=== PATIENT | female | born 1945 | race Caucasian/White ===

== ENCOUNTER 2016-06-20 11:24 | Inpatient (IN) | payer OTHER, BC ==
[~2016-06-20] VITALS: Ht 171.4 cm; Wt 79.7 kg
[~2016-06-20 11:24] MED LIST: ATORVASTATIN CA40 MG PO; ATORVASTATIN CA80 MG PO; CARVEDILOL12.5 MG PO; CARVEDILOL3.125 MG PO; CARVEDILOL6.25 MG PO; CIPRO500 MG PO; CIPROFLOXACIN500 M1 PO; DAILY VITE1 EAC1 PO; DAYPRO600 MG PO; DOCUSATE SODIU100 MG PO; FLOMAX0.4 MG PO; FLORASTOR250 MG PO; FUROSEMIDE20 MG PO; FUROSEMIDE40 MG PO; GLUCOPHAGE500 MG PO; HYDROCODON-ACE1 EAC7 PO; K-DUR20 MEQ PO; KLOR-CON M2020 MEQ PO; LASIX20 MG PO; LASIX40 MG PO; LEVAQUIN500 MG PO; LISINOPRIL10 MG PO; LISINOPRIL20 MG PO; LO-DOSE ASPIRIN81 M1 PO; Lomotil,Lonox PO; MAGNESIUM400 M1 PO; OXAPROZIN600 MG PO; PAXIL10 MG PO; PAXIL40 MG PO; PERCOCET 5/31 TABLET PO; PREVACID30 MG PO; PROMETHAZINE HC25 M1 PO; ROXICODONE5 MG PO; SODIUM CHLORIDE1 G1 PO; SYMBICORT60 INHALA1 IH; ZOFRAN4 MG PO
[2016-06-20 16:07] LABS: HEMATOCRIT 35.8 % (36.0-46.0); MCH 25.4 PG (29.0-34.0); MCHC 32.7 G/DL (30.0-36.0); MCV 77.8 FL (83-99); MEAN PLAT.VOLUME 10.3 uM^3 (9.5-12.4); PLATELET COUNT 236 K/uL (156-360); RBC DIS.WIDTH-CV 17.1 % (11.8-14.6); RBC DIS.WIDTH-SD 46.9 % (39-53)
[2016-06-20 16:16] LABS: CHLORIDE 98 mEq/L (99-109); POTASSIUM 3.9 mEq/L (3.7-5.4); SODIUM 137 mEq/L (136-147)
[2016-06-20 16:19] LABS: GLUCOSE 107 mg/dL (70-99)
[2016-06-20 16:20] LABS: ANION GAP 13 MEQ/L (2-14)
[2016-06-20 16:21] LABS: TOTAL BILIRUBIN 0.4 mg/dL (0.0-1.0)
[2016-06-20 16:22] LABS: ALKALINE PHOSPHATASE 98 IU/L (3-129); GFR ESTIMATE (CALCULATED) 40 mL/min/
[2016-06-20 16:23] LABS: UREA NITROGEN (BUN) 23 mg/dL (9-23)
[2016-06-20] MEDS ORDERED: PROBIOTIC250 MG PO (17:46)
[2016-06-20] MEDS ORDERED: ASCORBIC ACID500 M3 PO (17:47)
[2016-06-20] MEDS ORDERED: TYLENOL EXTRA500 MG PO (17:47)
[2016-06-20] MEDS ORDERED: ADVIL200 MG PO (17:48)
[2016-06-20 17:56] LABS: ADD MIUA? YES; BILIRUBIN NEGATIVE; BLOOD TRACE; COLOR YELLOW ((YELLOW)); GLUCOSE (STRIP) NEGATIVE; KETONES NEGATIVE; LEUKOCYTES LARGE; NITRITE POSITIVE; PH, URINE 6.5 (5-8); PROTEIN (STRIP) TRACE; UROBILINOGEN 0.2 MG/DL (0.2-1.0)
[2016-06-20 18:25] LABS: RED BLOOD CELLS RARE /HPF (0-5)
[2016-06-20 18:26] LABS: BACTERIA 2+; CASTS NONE SEEN /LPF; CRYSTALS NONE SEEN; EPITHELIAL CELLS RARE; MUCUS TRACE; UCUL ADDED? YES; WHITE BLOOD CELLS TNTC /HPF (0-5)
[2016-06-20 20:30] VITALS: BP 128/56
[2016-06-20 20:35] VITALS: BP 129/69
[2016-06-21] VITALS (7 sets, daily range): BP systolic 97–133; BP diastolic 52–63
[2016-06-21 07:37] LABS: INTER. NORMALIZED RATIO 1.1; PROTHROMBIN TIME 11.5 (9.2-11.2); PTT 27.9 (25-32)
[2016-06-22 04:49] VITALS: BP 115/72
[2016-06-22 07:40] VITALS: BP 116/74
[2016-06-22 08:52] LABS: HEMATOCRIT 29.6 % (36.0-46.0); MCH 25.1 PG (29.0-34.0); MCHC 30.7 G/DL (30.0-36.0); MCV 81.5 FL (83-99); RBC DIS.WIDTH-CV 17.6 % (11.8-14.6); RBC DIS.WIDTH-SD 52.6 % (39-53)
[2016-06-22 09:04] LABS: ANION GAP 7 MEQ/L (2-14); CHLORIDE 99 MEQ/L (99-109); GFR ESTIMATE (CALCULATED) 34 mL/min/; GLUCOSE 145 mg/dL (70-99); POTASSIUM 4.3 MEQ/L (3.7-5.4); SAMPLE HEMOLYSIS CHECK 0; SAMPLE ICTERIC CHECK 0; SAMPLE LIPEMIA CHECK 0; SODIUM 135 MEQ/L (136-147); UREA NITROGEN (BUN) 25 mg/dL (9-23)
[2016-06-22 09:16] LABS: RED BLOOD COUNT 3.63 M/uL (3.80-5.20); WHITE BLOOD COUNT 6.5 K/uL (4.1-10.2)
[2016-06-22 09:23] LABS: PLATELET COUNT UNABLE TO REPORT K/uL (156-360)
[2016-06-22 11:47] VITALS: BP 108/56
[2016-06-22 16:10] VITALS: BP 129/58
[2016-06-22 19:49] VITALS: BP 140/63
[2016-06-22 23:47] VITALS: BP 126/59
[2016-06-23 04:20] VITALS: BP 131/61
[2016-06-23 06:53] LABS: HEMATOCRIT 28.6 % (36.0-46.0); MCH 25.2 PG (29.0-34.0); MCHC 31.1 G/DL (30.0-36.0); RBC DIS.WIDTH-CV 17.6 % (11.8-14.6); RED BLOOD COUNT 3.53 M/uL (3.80-5.20); WHITE BLOOD COUNT 5.4 K/uL (4.1-10.2)
[2016-06-23 07:16] LABS: ANION GAP 13 MEQ/L (2-14); CHLORIDE 98 MEQ/L (99-109); GFR ESTIMATE (CALCULATED) 37 mL/min/; GLUCOSE 115 mg/dL (70-99); POTASSIUM 4.4 MEQ/L (3.7-5.4); SAMPLE HEMOLYSIS CHECK 0; SAMPLE ICTERIC CHECK 0; SAMPLE LIPEMIA CHECK 0; SODIUM 138 MEQ/L (136-147); UREA NITROGEN (BUN) 24 mg/dL (9-23)
[2016-06-23 07:57] VITALS: BP 143/67
[2016-06-23] MEDS ORDERED: DUONEB 2.5-0.5 M3 ML AEROSOL (09:51)
[2016-06-23] MEDS ORDERED: LOVENOX40 MG/0.4 SC (09:51)
[2016-06-23] MEDS ORDERED: PROVENTIL,2.5 MG/0.5 AEROSOL (09:51)
[2016-06-23] MEDS ORDERED: Dilaudid IV (09:52)
[2016-06-23] MEDS ORDERED: HYDROCODON-ACE1 EAC9 PO (09:52)
[2016-06-23] MEDS ORDERED: INVANZ1 GM IV (09:53)
[2016-06-23 10:42] LABS: MEAN PLAT.VOLUME 10.6 uM^3 (9.5-12.4)
[2016-06-23 10:46] LABS: PLATELET COUNT 153 K/uL (156-360)
[2016-06-23] MEDS ORDERED: COLACE100 MG PO (11:49)
[2016-06-23] MEDS ORDERED: PROTONIX40 MG PO (11:59)
[2016-06-23] MEDS ORDERED: ADVAIR HFA120 INHALA IH (12:02)
[2016-06-23] MEDS ORDERED: ZOFRAN4 MG/2 ML IM (12:03)
== END 2016-06-23 10:17 | DRG 481 ==
LOC: EME 11:24 → EDOF 17:25 → 3EAST 17:25
PROVIDERS: Nurse Practitioner Family; Pediatrics; Physician Assistant
PROC: 0QS704Z Reposition Left Upper Femur with Internal Fixation Device, Open Approach (ICD-10-PCS; principal; 2016-06-21)
DX: S72.042A Displaced fracture of base of neck of left femur, initial encounter for closed fracture (principal); F33.9 Major depressive disorder, recurrent, unspecified; N39.0 Urinary tract infection, site not specified; J44.9 Chronic obstructive pulmonary disease, unspecified; I10 Essential (primary) hypertension; E11.9 Type 2 diabetes mellitus without complications; F17.200 Nicotine dependence, unspecified, uncomplicated; I25.5 Ischemic cardiomyopathy; W01.0XXA Fall on same level from slipping, tripping and stumbling without subsequent striking against object, initial encounter; Y92.003 Bedroom of unspecified non-institutional (private) residence as the place of occurrence of the external cause; I25.10 Atherosclerotic heart disease of native coronary artery without angina pectoris; E78.5 Hyperlipidemia, unspecified; M10.9 Gout, unspecified; E55.9 Vitamin D deficiency, unspecified; Z95.1 Presence of aortocoronary bypass graft; Z87.440 Personal history of urinary (tract) infections
CPT/HCPCS: 71275; 73502; 76000; 80053; 80069; 81003; 82948; 85027; 85610; 85730; 86850; 86900; 86901; 87077; 87086; 87186; 93005; 94640; 94640 76; 94799; 99202; 99281; 99284; C1713; J0690; J0696; J1170; J1335; J1650; J2250; J2370; J2405; J3010; J7030; J7050

== ENCOUNTER 2016-06-23 10:16 | Inpatient (IN) | payer OTHER, BC ==
[~2016-06-23] VITALS: Ht 170.2 cm; Wt 77.4 kg
[~2016-06-23 10:16] MED LIST changes: +ADVIL200 MG PO; +ASCORBIC ACID500 M3 PO; +DUONEB 2.5-0.5 M3 ML AEROSOL; +Dilaudid IV; +HYDROCODON-ACE1 EAC9 PO; +INVANZ1 GM IV; +LOVENOX40 MG/0.4 SC; +PROBIOTIC250 MG PO; +PROVENTIL,2.5 MG/0.5 AEROSOL; +TYLENOL EXTRA500 MG PO
[2016-06-23 10:39] VITALS: BP 116/58
[2016-06-23 10:50] VITALS: BP 116/58
[2016-06-23] MEDS ORDERED: COLACE100 MG PO (11:49)
[2016-06-23] MEDS ORDERED: PROTONIX40 MG PO (11:59)
[2016-06-23] MEDS ORDERED: ADVAIR HFA120 INHALA IH (12:02)
[2016-06-23] MEDS ORDERED: ZOFRAN4 MG/2 ML IM (12:03)
[2016-06-23 15:56] VITALS: BP 107/59
[2016-06-23 21:52] LABS: POINT-OF-CARE METER ID UU13113720
[2016-06-24 00:41] VITALS: BP 129/72
[2016-06-24 04:58] VITALS: BP 151/57
[2016-06-24 06:53] LABS: HEMATOCRIT 29.9 % (36.0-46.0); MCH 25.4 PG (29.0-34.0); MCHC 31.4 G/DL (30.0-36.0); MCV 80.8 FL (83-99); MEAN PLAT.VOLUME 10.8 uM^3 (9.5-12.4); PLATELET COUNT 165 K/uL (156-360); RBC DIS.WIDTH-CV 17.7 % (11.8-14.6); RBC DIS.WIDTH-SD 52.4 % (39-53); WHITE BLOOD COUNT 5.3 K/uL (4.1-10.2)
[2016-06-24 07:31] LABS: ALKALINE PHOSPHATASE 82 IU/L (3-129); ANION GAP 9 MEQ/L (2-14); CHLORIDE 101 MEQ/L (99-109); GFR ESTIMATE (CALCULATED) 40 mL/min/; GLUCOSE 114 mg/dL (70-99); POTASSIUM 4.3 MEQ/L (3.7-5.4); SAMPLE HEMOLYSIS CHECK 0; SAMPLE ICTERIC CHECK 0; SAMPLE LIPEMIA CHECK 0; SODIUM 138 MEQ/L (136-147); TOTAL BILIRUBIN 0.5 MG/DL (0.0-1.0); UREA NITROGEN (BUN) 25 mg/dL (9-23)
[2016-06-24 07:33] LABS: POINT-OF-CARE METER ID UU14174215
[2016-06-24 12:00] LABS: POINT-OF-CARE METER ID UU14174215
[2016-06-24 15:00] VITALS: BP 179/74
[2016-06-24 16:34] LABS: POINT-OF-CARE METER ID UU14174215
[2016-06-24 16:44] VITALS: BP 158/68
[2016-06-24 21:12] LABS: POINT-OF-CARE METER ID UU13113720
[2016-06-25 06:09] VITALS: BP 136/84
[2016-06-25 07:43] LABS: POINT-OF-CARE METER ID UU14174215
[2016-06-25 10:30] LABS: C DIFF TOXIN NEGATIVE (NEGATIVE)
[2016-06-25 10:31] LABS: PROBE CHECK PASS; SPECIMEN PROCESSING CONTROL PASS
[2016-06-25 11:37] LABS: POINT-OF-CARE METER ID UU14174215
[2016-06-25 15:00] VITALS: BP 158/62
[2016-06-25 15:59] LABS: INFLUENZA A VIRAL ANTIGEN POSITIVE; INFLUENZA B VIRAL ANTIGEN NEGATIVE
[2016-06-25 16:55] LABS: POINT-OF-CARE METER ID UU14174215
[2016-06-25 21:12] LABS: POINT-OF-CARE METER ID UU14174215
[2016-06-26 00:24] VITALS: BP 152/86
[2016-06-26 05:18] LABS: MCH 24.8 PG (29.0-34.0); MCHC 31.3 G/DL (30.0-36.0); MCV 79.3 FL (83-99); MEAN PLAT.VOLUME 10.7 uM^3 (9.5-12.4); PLATELET COUNT 173 K/uL (156-360); RBC DIS.WIDTH-CV 17.9 % (11.8-14.6); RBC DIS.WIDTH-SD 51.6 % (39-53); RED BLOOD COUNT 3.91 M/uL (3.80-5.20); WHITE BLOOD COUNT 3.8 K/uL (4.1-10.2)
[2016-06-26 05:38] VITALS: BP 128/82
[2016-06-26 05:43] LABS: ALKALINE PHOSPHATASE 78 IU/L (3-129); ANION GAP 11 MEQ/L (2-14); CHLORIDE 96 MEQ/L (99-109); GFR ESTIMATE (CALCULATED) 37 mL/min/; GLUCOSE 90 mg/dL (70-99); POTASSIUM 4.2 MEQ/L (3.7-5.4); SAMPLE HEMOLYSIS CHECK 0; SAMPLE ICTERIC CHECK 0; SAMPLE LIPEMIA CHECK 0; SODIUM 132 MEQ/L (136-147); TOTAL BILIRUBIN 0.5 MG/DL (0.0-1.0); UREA NITROGEN (BUN) 26 mg/dL (9-23)
[2016-06-26 07:25] LABS: POINT-OF-CARE METER ID UU14174215
[2016-06-26 11:11] LABS: POINT-OF-CARE METER ID UU14174215
[2016-06-26 15:16] VITALS: BP 131/62
[2016-06-26 17:28] LABS: POINT-OF-CARE METER ID UU13113720
[2016-06-26 20:55] LABS: POINT-OF-CARE METER ID UU13113720
[2016-06-27 05:02] VITALS: BP 143/64
[2016-06-27 07:16] LABS: POINT-OF-CARE METER ID UU13113720
[2016-06-27] MEDS ORDERED: DILAUDID1 MG/ML IV ×2 (09:07→09:09)
[2016-06-27 11:32] LABS: POINT-OF-CARE METER ID UU13113720
[2016-06-27 15:28] VITALS: BP 112/52
[2016-06-27] MEDS ORDERED: KLOR-CON M2020 MEQ PO (16:04)
[2016-06-27] MEDS ORDERED: FUROSEMIDE40 MG PO (16:04)
[2016-06-27] MEDS ORDERED: OSELTAMIVIR PHO30 MG PO (16:04)
[2016-06-27] MEDS ORDERED: CARVEDILOL12.5 MG PO (16:04)
[2016-06-27] MEDS ORDERED: SYMBICORT60 INHALA1 IH (16:04)
[2016-06-27] MEDS ORDERED: THERAGRAN1 TABLET PO (16:04)
[2016-06-27] MEDS ORDERED: HYDROCODON-ACE1 EAC7 PO (16:04)
[2016-06-27] MEDS ORDERED: PREDNISONE10 MG PO (16:04)
[2016-06-27] MEDS ORDERED: MAGNESIUM400 M1 PO (16:04)
[2016-06-27] MEDS ORDERED: FOLIC ACID1 MG PO (16:04)
[2016-06-27] MEDS ORDERED: SPIRIVA RESPIMAT4 GM IH (16:04)
[2016-06-27] MEDS ORDERED: PROVENTIL,2.5 MG/0.5 AEROSOL (16:04)
[2016-06-27] MEDS ORDERED: LOVENOX40 MG/0.4 SC (16:04)
[2016-06-27 16:44] LABS: POINT-OF-CARE METER ID UU13113720
[2016-06-27 20:41] LABS: POINT-OF-CARE METER ID UU13113720
[2016-06-28 05:07] VITALS: BP 160/70
[2016-06-28 05:28] LABS: HEMATOCRIT 31.7 % (36.0-46.0); MCH 24.3 PG (29.0-34.0); MCHC 30.9 G/DL (30.0-36.0); MCV 78.7 FL (83-99); MEAN PLAT.VOLUME 10.8 uM^3 (9.5-12.4); PLATELET COUNT 163 K/uL (156-360); RBC DIS.WIDTH-CV 17.3 % (11.8-14.6); RBC DIS.WIDTH-SD 49.8 % (39-53); RED BLOOD COUNT 4.03 M/uL (3.80-5.20); WHITE BLOOD COUNT 3.3 K/uL (4.1-10.2)
[2016-06-28 05:44] LABS: ANION GAP 10 MEQ/L (2-14); CHLORIDE 99 MEQ/L (99-109); GFR ESTIMATE (CALCULATED) 34 mL/min/; GLUCOSE 85 mg/dL (70-99); POTASSIUM 4.7 MEQ/L (3.7-5.4); SAMPLE HEMOLYSIS CHECK 0; SAMPLE ICTERIC CHECK 0; SAMPLE LIPEMIA CHECK 0; SODIUM 132 MEQ/L (136-147); UREA NITROGEN (BUN) 43 mg/dL (9-23)
[2016-06-28 07:05] LABS: POINT-OF-CARE METER ID UU13113720
== END 2016-06-28 11:45 | disposition left against medical advice (07) | DRG 464 ==
LOC: 3WEST 10:16
PROVIDERS: Physical Medicine & Rehabilitation Pain Medicine
PROC: F07M0ZZ Range of Motion and Joint Mobility Treatment of Musculoskeletal System - Whole Body (ICD-10-PCS; principal; 2016-06-23)
PROC: 0HBMXZZ Excision of Right Foot Skin, External Approach (ICD-10-PCS; 2016-06-25)
DX: S72.012D Unspecified intracapsular fracture of left femur, subsequent encounter for closed fracture with routine healing (principal); D62 Acute posthemorrhagic anemia; N39.0 Urinary tract infection, site not specified; N17.9 Acute kidney failure, unspecified; J44.1 Chronic obstructive pulmonary disease with (acute) exacerbation; E87.1 Hypo-osmolality and hyponatremia; J10.1 Influenza due to other identified influenza virus with other respiratory manifestations; J44.0 Chronic obstructive pulmonary disease with (acute) lower respiratory infection; J20.9 Acute bronchitis, unspecified; W01.0XXD Fall on same level from slipping, tripping and stumbling without subsequent striking against object, subsequent encounter; R26.2 Difficulty in walking, not elsewhere classified; B96.20 Unspecified Escherichia coli [E. coli] as the cause of diseases classified elsewhere; I25.10 Atherosclerotic heart disease of native coronary artery without angina pectoris; E83.51 Hypocalcemia; I50.9 Heart failure, unspecified; E11.9 Type 2 diabetes mellitus without complications; K21.9 Gastro-esophageal reflux disease without esophagitis; D69.6 Thrombocytopenia, unspecified; E78.5 Hyperlipidemia, unspecified; I11.0 Hypertensive heart disease with heart failure; Z87.440 Personal history of urinary (tract) infections; F32.9 Major depressive disorder, single episode, unspecified; L89.610 Pressure ulcer of right heel, unstageable; I27.2 Other secondary pulmonary hypertension; I34.0 Nonrheumatic mitral (valve) insufficiency; Z95.1 Presence of aortocoronary bypass graft; F17.200 Nicotine dependence, unspecified, uncomplicated
CPT/HCPCS: 71010; 80048; 80053; 82948; 85027; 87493; 87502; 94640; 94640 76; 94799; 97110 GO; 97530 GP; J1335; J1650; J1815; J7050; J7512

== ENCOUNTER 2016-08-01 07:33 | Observation (INO) | payer OTHER, BC ==
[~2016-08-01] VITALS: Ht 167.6 cm; Wt 79.3 kg
[~2016-08-01 07:33] MED LIST changes: +ADVAIR HFA120 INHALA IH; +COLACE100 MG PO; +DILAUDID1 MG/ML IV; +FOLIC ACID1 MG PO; +OSELTAMIVIR PHO30 MG PO; +PREDNISONE10 MG PO; +PROTONIX40 MG PO; +SPIRIVA RESPIMAT4 GM IH; +THERAGRAN1 TABLET PO; +ZOFRAN4 MG/2 ML IM
[2016-08-01 08:06] LABS: HEMATOCRIT 28.2 % (36.0-46.0); MCH 25.8 PG (29.0-34.0); MCHC 32.6 G/DL (30.0-36.0); MCV 79.2 FL (83-99); MEAN PLAT.VOLUME 11.4 uM^3 (9.5-12.4); PLATELET COUNT 193 K/uL (156-360); RBC DIS.WIDTH-CV 19.1 % (11.8-14.6); RBC DIS.WIDTH-SD 52.3 % (39-53); RED BLOOD COUNT 3.56 M/uL (3.80-5.20); WHITE BLOOD COUNT 9.2 K/uL (4.1-10.2)
[2016-08-01 08:25] LABS: CHLORIDE 94 mEq/L (99-109); POTASSIUM 3.4 mEq/L (3.7-5.4); SODIUM 135 mEq/L (136-147)
[2016-08-01 08:28] LABS: GLUCOSE 130 mg/dL (70-99)
[2016-08-01 08:29] LABS: ANION GAP 17 MEQ/L (2-14); TOTAL BILIRUBIN 0.4 mg/dL (0.0-1.0)
[2016-08-01 08:30] LABS: TROP-I INTERPRETATION NEGATIVE; TROPONIN-I < 0.01 ng/mL (0.0-0.30)
[2016-08-01 08:31] LABS: ALKALINE PHOSPHATASE 94 IU/L (3-129); GFR ESTIMATE (CALCULATED) 26 mL/min/
[2016-08-01 08:32] LABS: UREA NITROGEN (BUN) 45 mg/dL (9-23)
[2016-08-01 08:35] LABS: LIPASE 16 U/L (1.0-51.0)
[2016-08-01 09:02] LABS: ADD MIUA? YES; BILIRUBIN NEGATIVE; BLOOD SMALL; COLOR YELLOW ((YELLOW)); GLUCOSE (STRIP) NEGATIVE; KETONES NEGATIVE; LEUKOCYTES LARGE; NITRITE NEGATIVE; PROTEIN (STRIP) 30; SPECIFIC GRAVITY 1.013 (1.000-1.030); UROBILINOGEN 0.2 MG/DL (0.2-1.0)
[2016-08-01 09:21] LABS: INFLUENZA A VIRAL ANTIGEN NEGATIVE; INFLUENZA B VIRAL ANTIGEN NEGATIVE
[2016-08-01 09:41] LABS: BACTERIA 1+ /HPF; EPITHELIAL CELLS RARE /HPF; MUCUS NONE SEEN /LPF; RED BLOOD CELLS 0-5 /HPF (0-5); WHITE BLOOD CELLS TNTC /HPF (0-5)
[2016-08-01] MEDS ORDERED: OXAPROZIN600 MG PO (10:34)
[2016-08-01] MEDS ORDERED: ADVIL,NUPRIN,M200 MG PO (10:34)
[2016-08-01 12:14] LABS: POINT-OF-CARE METER ID UU14100415
[2016-08-01 13:26] VITALS: BP 126/59
[2016-08-01 16:00] VITALS: BP 117/58
[2016-08-01 16:15] LABS: POINT-OF-CARE METER ID UU14162513
[2016-08-01 19:00] VITALS: BP 111/56
[2016-08-01 23:59] VITALS: BP 101/50
[2016-08-02 04:08] VITALS: BP 116/54
[2016-08-02 06:29] LABS: ANION GAP 7 MEQ/L (2-14); CHLORIDE 102 MEQ/L (99-109); GFR ESTIMATE (CALCULATED) 32 mL/min/; SAMPLE HEMOLYSIS CHECK 0; SAMPLE ICTERIC CHECK 0; SAMPLE LIPEMIA CHECK 0; SODIUM 138 MEQ/L (136-147); UREA NITROGEN (BUN) 34 mg/dL (9-23)
[2016-08-02 06:36] LABS: GLUCOSE 85 mg/dL (70-99); HEMATOCRIT 25.5 % (36.0-46.0); MCH 25.9 PG (29.0-34.0); MCHC 31.8 G/DL (30.0-36.0); MCV 81.5 FL (83-99); MEAN PLAT.VOLUME 11.3 uM^3 (9.5-12.4); PLATELET COUNT 176 K/uL (156-360); POTASSIUM 4.8 MEQ/L (3.7-5.4); RBC DIS.WIDTH-CV 19.3 % (11.8-14.6); RBC DIS.WIDTH-SD 57.9 % (39-53); RED BLOOD COUNT 3.13 M/uL (3.80-5.20)
[2016-08-02 08:05] LABS: POINT-OF-CARE METER ID UU14162513
[2016-08-02 08:45] VITALS: BP 139/63
[2016-08-02 11:32] LABS: ADD MIUA? YES; BILIRUBIN NEGATIVE; BLOOD SMALL; COLOR YELLOW ((YELLOW)); GLUCOSE (STRIP) NEGATIVE; KETONES NEGATIVE; LEUKOCYTES MODERATE; NITRITE NEGATIVE; PROTEIN (STRIP) 30; SPECIFIC GRAVITY 1.013 (1.000-1.030); UROBILINOGEN 0.2 MG/DL (0.2-1.0)
[2016-08-02 11:37] VITALS: BP 118/59
[2016-08-02 12:20] LABS: BACTERIA NONE SEEN /HPF; EPITHELIAL CELLS RARE /HPF; MUCUS NONE SEEN /LPF; UCUL ADDED? YES; WHITE BLOOD CELLS TNTC /HPF (0-5)
[2016-08-02 12:22] LABS: POINT-OF-CARE METER ID UU13113831
[2016-08-02 15:50] VITALS: BP 98/54
[2016-08-02 17:13] LABS: POINT-OF-CARE METER ID UU13113831
[2016-08-02 19:45] VITALS: BP 120/42
[2016-08-02 21:55] LABS: POINT-OF-CARE METER ID UU14162513
[2016-08-03 00:21] VITALS: BP 102/51
[2016-08-03 04:22] VITALS: BP 98/54
[2016-08-03 08:14] LABS: POINT-OF-CARE METER ID UU14162513
[2016-08-03 09:27] LABS: ANION GAP 9 MEQ/L (2-14); CHLORIDE 102 MEQ/L (99-109); GFR ESTIMATE (CALCULATED) 43 mL/min/; GLUCOSE 87 mg/dL (70-99); POTASSIUM 4.2 MEQ/L (3.7-5.4); SAMPLE HEMOLYSIS CHECK 0; SAMPLE ICTERIC CHECK 0; SAMPLE LIPEMIA CHECK 0; SODIUM 139 MEQ/L (136-147); UREA NITROGEN (BUN) 25 mg/dL (9-23)
[2016-08-03 11:55] VITALS: BP 128/70
[2016-08-03 12:16] LABS: POINT-OF-CARE METER ID UU14162513
== END 2016-08-03 15:55 | disposition home or self-care (01) ==
LOC: EME 07:33 → EDOF 10:04 → 5WEST 10:04 → EDOF 10:15 → 5WEST 13:08
PROVIDERS: Hospitalist; Internal Medicine; Nurse Practitioner Family
DX: N17.9 Acute kidney failure, unspecified (principal); N18.3 Chronic kidney disease, stage 3 (moderate); N39.0 Urinary tract infection, site not specified; B96.20 Unspecified Escherichia coli [E. coli] as the cause of diseases classified elsewhere; Z16.12 Extended spectrum beta lactamase (ESBL) resistance; G89.18 Other acute postprocedural pain; M25.552 Pain in left hip; Z96.642 Presence of left artificial hip joint; F32.9 Major depressive disorder, single episode, unspecified; I25.10 Atherosclerotic heart disease of native coronary artery without angina pectoris; Z95.1 Presence of aortocoronary bypass graft; E11.22 Type 2 diabetes mellitus with diabetic chronic kidney disease; I50.32 Chronic diastolic (congestive) heart failure; J44.9 Chronic obstructive pulmonary disease, unspecified; R19.7 Diarrhea, unspecified; R10.11 Right upper quadrant pain; F17.200 Nicotine dependence, unspecified, uncomplicated; Z82.49 Family history of ischemic heart disease and other diseases of the circulatory system
CPT/HCPCS: 71020; 76770; 80048; 80053; 81003; 82948; 83690; 84484; 85027; 87040; 87086; 87502; 93005; 94640; 94640 76; 94799; 99202; 99281; 99285; G0378; G8978 GP CI; G8980 GP CH; J0692; J1335; J1644; J1815; J2270; J2405; J7030; J7050

== ENCOUNTER 2016-12-11 09:03 | Inpatient (IN) | payer OTHER, BC ==
[~2016-12-11] VITALS: Ht 167.6 cm; Wt 77.1 kg
[~2016-12-11 09:03] MED LIST changes: +ADVIL,NUPRIN,M200 MG PO; +COREG12.5 M1 PO; +LO-DOSE ASPIRIN81 M2 PO; +MOTRIN IB200 MG PO; +SYMBICORT60 INHALAT IH; +VITAMIN D-32000 UNI2 PO
[2016-12-11 09:29] VITALS: BP 175/79
[2016-12-11 09:55] LABS: POINT-OF-CARE METER ID UU13113694
[2016-12-11 14:39] LABS: HEMATOCRIT 30.3 % (36.0-46.0); MCH 23.8 PG (29.0-34.0); MCV 79.1 FL (83-99); MEAN PLAT.VOLUME 10.4 uM^3 (9.5-12.4); PLATELET COUNT 160 K/uL (156-360); RBC DIS.WIDTH-SD 48.4 % (39-53); RED BLOOD COUNT 3.83 M/uL (3.80-5.20); WHITE BLOOD COUNT 10.6 K/uL (4.1-10.2)
[2016-12-11 17:31] LABS: POINT-OF-CARE METER ID UU13113712
[2016-12-11 20:18] VITALS: BP 126/58
[2016-12-11 22:13] LABS: POINT-OF-CARE METER ID UU13113712
[2016-12-12] VITALS: BP 103/58
[2016-12-12 04:20] VITALS: BP 155/77
[2016-12-12 07:14] LABS: ANION GAP 8 MEQ/L (2-14); CHLORIDE 102 MEQ/L (99-109); GFR ESTIMATE (CALCULATED) 47 mL/min/; GLUCOSE 123 mg/dL (70-99); POTASSIUM 4.8 MEQ/L (3.7-5.4); SAMPLE HEMOLYSIS CHECK 0; SAMPLE ICTERIC CHECK 0; SAMPLE LIPEMIA CHECK 0; SODIUM 137 MEQ/L (136-147); UREA NITROGEN (BUN) 19 mg/dL (9-23)
[2016-12-12 07:31] LABS: POINT-OF-CARE METER ID UU13113712
[2016-12-12 08:00] VITALS: BP 182/98
[2016-12-12 11:27] LABS: POINT-OF-CARE METER ID UU13113712
[2016-12-12 12:00] VITALS: BP 156/68
[2016-12-12 14:43] LABS: HEMATOCRIT 27.3 % (36.0-46.0); MCV 79.8 FL (83-99)
[2016-12-12 15:48] VITALS: BP 152/70
[2016-12-12 16:40] LABS: POINT-OF-CARE METER ID UU13113712
[2016-12-12 20:05] VITALS: BP 185/79
[2016-12-12 21:50] LABS: POINT-OF-CARE METER ID UU13113712
[2016-12-13 00:15] VITALS: BP 147/67
[2016-12-13 04:30] VITALS: BP 147/67
[2016-12-13 07:43] LABS: POINT-OF-CARE METER ID UU13113712
[2016-12-13 08:11] VITALS: BP 174/77
[2016-12-13] MEDS ORDERED: SENNA PLUS TAB1 EACH PO (08:23)
[2016-12-13] MEDS ORDERED: LOVENOX40 MG/0.4 SC (08:23)
[2016-12-13] MEDS ORDERED: HYDROCODON-ACE1 EAC7 PO (08:23)
[2016-12-13 11:29] LABS: POINT-OF-CARE METER ID UU13113712
[2016-12-13 12:06] VITALS: BP 118/57
== END 2016-12-13 15:24 | disposition home health service (06) | DRG 470 ==
LOC: 3WEST 09:03 → 2SOUTH 09:03 → 3WEST 14:44 → 2SOUTH 15:12 → 3WEST 12-13 15:24
PROVIDERS: Orthopaedic Surgery
DX: T84.195A Other mechanical complication of internal fixation device of left femur, initial encounter (principal); S72.002P Fracture of unspecified part of neck of left femur, subsequent encounter for closed fracture with malunion; I11.0 Hypertensive heart disease with heart failure; I50.9 Heart failure, unspecified; J44.9 Chronic obstructive pulmonary disease, unspecified; F17.200 Nicotine dependence, unspecified, uncomplicated; M10.9 Gout, unspecified; E11.9 Type 2 diabetes mellitus without complications; K21.9 Gastro-esophageal reflux disease without esophagitis; F41.9 Anxiety disorder, unspecified; Z99.81 Dependence on supplemental oxygen; I25.2 Old myocardial infarction; Z95.1 Presence of aortocoronary bypass graft
CPT/HCPCS: 73501; 80048; 82948; 85014; 85018; 85027; 94640; 94640 76; 94799; J0131; J0690; J1100; J1170; J1650; J1815; J1885; J2250; J2405; J3010; J7050

== ENCOUNTER 2017-07-21 02:23 | Emergency (ER) | payer OTHER, BC ==
[~2017-07-21] VITALS: Ht 170.2 cm; Wt 84.1 kg
[~2017-07-21 02:23] MED LIST changes: +SENNA PLUS TAB1 EACH PO
[2017-07-21 03:00] LABS: HEMATOCRIT 31.9 % (36.0-46.0); HEMOGLOBIN 9.6 G/DL (11.9-15.5); MCH 22.3 PG (29.0-34.0); MCHC 30.1 G/DL (30.0-36.0); MCV 74.2 FL (83-99); PLATELET COUNT 190 K/uL (156-360); RBC DIS.WIDTH-CV 18.3 % (11.8-14.6); RBC DIS.WIDTH-SD 48.2 % (39-53); WHITE BLOOD COUNT 8.3 K/uL (4.1-10.2)
[2017-07-21 03:05] LABS: ALBUMIN 3.8 g/dL (3.2-4.8); CHLORIDE 96 mEq/L (99-109); POTASSIUM 4.3 mEq/L (3.7-5.4); SODIUM 134 mEq/L (136-147)
[2017-07-21 03:07] LABS: GLUCOSE 214 mg/dL (70-99); TOTAL PROTEIN 7.6 g/dL (6.4-8.3)
[2017-07-21 03:09] LABS: TOTAL BILIRUBIN 0.8 mg/dL (0.0-1.0)
[2017-07-21 03:11] LABS: ALKALINE PHOSPHATASE 125 IU/L (3-129); CREATININE 1.1 mg/dL (0.6-1.3); GFR ESTIMATE (CALCULATED) 52 mL/min/
[2017-07-21 03:12] LABS: UREA NITROGEN (BUN) 13 mg/dL (9-23)
[2017-07-21 03:13] LABS: AST (GOT) 16 IU/L (2-34)
[2017-07-21 03:14] LABS: ALT (GPT) 11 IU/L (3-49); LIPASE 24 U/L (1.0-51.0)
[2017-07-21 04:41] LABS: APPEARANCE CLEAR ((CLEAR)); BILIRUBIN NEGATIVE; BLOOD NEGATIVE; COLOR YELLOW ((YELLOW)); GLUCOSE (STRIP) NEGATIVE; KETONES NEGATIVE; LEUKOCYTES NEGATIVE; NITRITE NEGATIVE; PROTEIN (STRIP) >=500; SPECIFIC GRAVITY 1.019 (1.000-1.030); UROBILINOGEN 0.2 MG/DL (0.2-1.0)
[2017-07-21 04:43] LABS: BACTERIA RARE /HPF; EPITHELIAL CELLS 1+ /HPF; MUCUS TRACE /LPF; RED BLOOD CELLS 0-5 /HPF (0-5); UCUL ADDED? NO; WHITE BLOOD CELLS 0-5 /HPF (0-5)
[2017-07-21] MEDS ORDERED: NORCO 5/3251 TABLET PO (04:50)
[2017-07-21] MEDS ORDERED: ZOFRAN ODT4 MG PO (04:50)
[2017-07-21 05:53] VITALS: BP 177/64
== END 2017-07-21 05:54 | disposition home or self-care (01) ==
LOC: EME 02:23
DX: R10.11 Right upper quadrant pain (principal); D64.89 Other specified anemias; E11.65 Type 2 diabetes mellitus with hyperglycemia; K74.69 Other cirrhosis of liver; I25.2 Old myocardial infarction; I50.9 Heart failure, unspecified; F17.200 Nicotine dependence, unspecified, uncomplicated; Z79.84 Long term (current) use of oral hypoglycemic drugs; Z87.442 Personal history of urinary calculi; Z95.1 Presence of aortocoronary bypass graft
CPT/HCPCS: 74177; 76705; 80053; 81003; 83690; 85027; 99281; 99285; J2270; J2405; J7030

== ENCOUNTER 2017-07-23 14:26 | Emergency (ER) | payer OTHER, BC ==
[~2017-07-23] VITALS: Ht 167.6 cm; Wt 81.8 kg
[~2017-07-23 14:26] MED LIST changes: +NORCO 5/3251 TABLET PO; +ZOFRAN ODT4 MG PO
[2017-07-23 14:45] LABS: HEMATOCRIT 31.6 % (36.0-46.0); HEMOGLOBIN 9.4 G/DL (11.9-15.5); MCH 22.5 PG (29.0-34.0); MCHC 29.7 G/DL (30.0-36.0); MCV 75.6 FL (83-99); PLATELET COUNT 176 K/uL (156-360); RBC DIS.WIDTH-CV 18.3 % (11.8-14.6); RBC DIS.WIDTH-SD 49.7 % (39-53); RED BLOOD COUNT 4.18 M/uL (3.80-5.20); WHITE BLOOD COUNT 7.9 K/uL (4.1-10.2)
[2017-07-23 14:55] LABS: ALBUMIN 3.8 g/dL (3.2-4.8); CHLORIDE 97 mEq/L (99-109); POTASSIUM 4.1 mEq/L (3.7-5.4); SODIUM 132 mEq/L (136-147)
[2017-07-23 14:58] LABS: GLUCOSE 153 mg/dL (70-99); TOTAL PROTEIN 7.5 g/dL (6.4-8.3)
[2017-07-23 15:00] LABS: TOTAL BILIRUBIN 0.7 mg/dL (0.0-1.0)
[2017-07-23 15:01] LABS: ALKALINE PHOSPHATASE 120 IU/L (3-129); CREATININE 1.2 mg/dL (0.6-1.3); GFR ESTIMATE (CALCULATED) 47 mL/min/
[2017-07-23 15:02] LABS: UREA NITROGEN (BUN) 14 mg/dL (9-23)
[2017-07-23 15:03] LABS: AST (GOT) 16 IU/L (2-34)
[2017-07-23 15:04] LABS: ALT (GPT) 10 IU/L (3-49)
[2017-07-23 15:55] LABS: APPEARANCE CLEAR ((CLEAR)); BILIRUBIN NEGATIVE; BLOOD NEGATIVE; COLOR STRAW ((YELLOW)); GLUCOSE (STRIP) NEGATIVE; KETONES NEGATIVE; LEUKOCYTES TRACE; NITRITE NEGATIVE; PROTEIN (STRIP) 100; SPECIFIC GRAVITY 1.005 (1.000-1.030); UROBILINOGEN 0.2 MG/DL (0.2-1.0)
[2017-07-23 15:59] LABS: BACTERIA RARE /HPF; EPITHELIAL CELLS RARE /HPF; MUCUS NONE SEEN /LPF; RED BLOOD CELLS 0-5 /HPF (0-5); UCUL ADDED? NO; WHITE BLOOD CELLS 0-5 /HPF (0-5)
[2017-07-23 16:16] LABS: LIPASE 16 U/L (1.0-51.0)
[2017-07-23] MEDS ORDERED: NORCO 5/3251 TABLET PO (20:45)
[2017-07-23] MEDS ORDERED: COLACE100 MG PO (20:45)
[2017-07-23] MEDS ORDERED: ZOFRAN ODT4 MG PO (20:45)
[2017-07-23] MEDS ORDERED: FLEXERIL10 MG PO (20:45)
[2017-07-23] MEDS ORDERED: MOTRIN800 MG PO (20:49)
[2017-07-23 21:02] VITALS: BP 186/86
== END 2017-07-23 21:03 | disposition home or self-care (01) ==
LOC: EME 14:26
DX: K80.70 Calculus of gallbladder and bile duct without cholecystitis without obstruction (principal); K59.00 Constipation, unspecified; F17.200 Nicotine dependence, unspecified, uncomplicated; I25.2 Old myocardial infarction; Z87.442 Personal history of urinary calculi; I50.9 Heart failure, unspecified; E11.9 Type 2 diabetes mellitus without complications; Z95.1 Presence of aortocoronary bypass graft; Z79.84 Long term (current) use of oral hypoglycemic drugs; J44.9 Chronic obstructive pulmonary disease, unspecified
CPT/HCPCS: 74176; 80053; 81003; 83690; 85027; 99281; 99285; J1885; J2270; J2405; J7030

== ENCOUNTER 2017-08-23 10:03 | Day surgery (SDC) | payer OTHER, BC ==
[~2017-08-23] VITALS: Ht 167.6 cm; Wt 83.9 kg
[~2017-08-23 10:03] MED LIST changes: +FLEXERIL10 MG PO; +MOTRIN800 MG PO
[2017-08-23] MEDS ORDERED: ASPIR 8181 M1 PO (10:19)
[2017-08-23 10:21] VITALS: BP 204/92
[2017-08-23 10:23] VITALS: BP 204/92
[2017-08-23 11:04] LABS: INTER. NORMALIZED RATIO 1.2
[2017-08-23 11:05] VITALS: BP 193/90
[2017-08-23 11:07] LABS: PTT 30.6 SEC (25-37)
[2017-08-23] MEDS ORDERED: HYDROCODON-ACE1 EAC7 PO (14:11)
[2017-08-23 14:26] LABS: BASE EXCESS -1.9 mEq/L (-3 to +3); BICARBONATE 26.8 mEq/L (22-26); CARBOXY HGB 4.2 % (0-5); METHEMOGLOBIN 0.7 % (0-1.5); PO2 177 mm Hg (80-100)
[2017-08-23 14:27] LABS: COMMENTS - BLOOD GASES A+C+; DEVICE VENT; FI02 100 %; MECHANICAL RATE 16 resp/min; MODE AC; PCO2 67 mm Hg (35-45); SITE R RAD; TIDAL VOLUME 400 ML; TOTAL RESP RATE 18 resp/min
[2017-08-23 14:28] LABS: PEEP 5 CM/H20
[2017-08-23 14:45] LABS: ALBUMIN 3.3 G/DL (3.2-4.8); ALKALINE PHOSPHATASE 107 IU/L (3-129); ALT (GPT) 13 IU/L (3-49); AST (GOT) 29 IU/L (2-34); CHLORIDE 103 MEQ/L (99-109); CREATININE 1.1 MG/DL (0.6-1.3); GFR ESTIMATE (CALCULATED) 52 mL/min/; GLUCOSE 316 mg/dL (70-99); MAGNESIUM 1.1 mg/dl (1.3-2.7); PHOSPHORUS 5.4 mg/dL (2.5-4.9); POTASSIUM 4.6 MEQ/L (3.7-5.4); SODIUM 135 MEQ/L (136-147); TOTAL BILIRUBIN 0.5 MG/DL (0.0-1.0); TOTAL PROTEIN 6.9 G/DL (6.4-8.3); UREA NITROGEN (BUN) 11 mg/dL (9-23)
[2017-08-23 15:12] LABS: pH 7.21 (7.35-7.45)
[2017-08-23 15:38] LABS: HEMATOCRIT 30.9 % (36.0-46.0); HEMOGLOBIN 9.1 G/DL (11.9-15.5); MCV 77.1 FL (83-99)
[2017-08-23 17:41] VITALS: BP 141/63
[2017-08-23 20:32] VITALS: BP 140/63
[2017-08-24 00:14] VITALS: BP 136/63
[2017-08-24 04:40] VITALS: BP 130/60
[2017-08-24 06:22] LABS: HEMOGLOBIN 8.1 G/DL (11.9-15.5); MCH 22.3 PG (29.0-34.0); MCHC 28.9 G/DL (30.0-36.0); MCV 77.1 FL (83-99); RBC DIS.WIDTH-CV 18.6 % (11.8-14.6); RBC DIS.WIDTH-SD 51.8 % (39-53); WHITE BLOOD COUNT 6.5 K/uL (4.1-10.2)
[2017-08-24 06:33] LABS: PLATELET COUNT 124 K/uL (156-360); RED BLOOD COUNT 3.63 M/uL (3.80-5.20)
[2017-08-24 06:46] LABS: ALBUMIN 2.7 G/DL (3.2-4.8); ALKALINE PHOSPHATASE 88 IU/L (3-129); ALT (GPT) 16 IU/L (3-49); AST (GOT) 36 IU/L (2-34); CHLORIDE 105 MEQ/L (99-109); CREATININE 1.3 MG/DL (0.6-1.3); GFR ESTIMATE (CALCULATED) 43 mL/min/; GLUCOSE 174 mg/dL (70-99); SODIUM 137 MEQ/L (136-147); UREA NITROGEN (BUN) 14 mg/dL (9-23)
[2017-08-24 07:09] LABS: TOTAL BILIRUBIN 0.3 MG/DL (0.0-1.0); TOTAL PROTEIN 5.3 G/DL (6.4-8.3)
[2017-08-24 07:34] VITALS: BP 149/69
[2017-08-24 10:17] LABS: HEPATITIS B SURFACE ANTIGEN Nonreactive; HEPATITIS C ANTIBODY Nonreactive
[2017-08-24 10:19] LABS: ANTI-HEPATITIS A VIRUS (IGM) Nonreactive; ANTI-HEPATITIS B CORE (IGM) Nonreactive
[2017-08-24 13:16] VITALS: BP 145/74
== END 2017-08-24 13:13 | disposition home or self-care (01) ==
LOC: SDC 10:03 → ENRESERV 13:59 → 2SOUTH 14:00 → ENRESERV 14:04 → SDC 16:05 → 2EASTP 17:25
PROVIDERS: Anesthesiology; Surgery
DX: K80.10 Calculus of gallbladder with chronic cholecystitis without obstruction (principal); K73.9 Chronic hepatitis, unspecified; K74.69 Other cirrhosis of liver; Z22.39 Carrier of other specified bacterial diseases; I11.0 Hypertensive heart disease with heart failure; I50.9 Heart failure, unspecified; M10.9 Gout, unspecified; K21.9 Gastro-esophageal reflux disease without esophagitis; F17.210 Nicotine dependence, cigarettes, uncomplicated; E11.9 Type 2 diabetes mellitus without complications; Z79.84 Long term (current) use of oral hypoglycemic drugs; I25.10 Atherosclerotic heart disease of native coronary artery without angina pectoris; Z95.1 Presence of aortocoronary bypass graft; Z96.649 Presence of unspecified artificial hip joint; Z90.79 Acquired absence of other genital organ(s); Z82.49 Family history of ischemic heart disease and other diseases of the circulatory system; Z83.3 Family history of diabetes mellitus
CPT/HCPCS: 36600; 71045; 80053; 80074; 82803; 82948; 83735; 84100; 84132 91; 85014; 85018; 85027; 85610; 85730; 86850; 86900; 86901; 88304; 88307; 94002; 94640; 94799; 99202; G0378; J2250; J2310; J2405; J2710; J3010; S0074

== ENCOUNTER 2017-12-07 21:49 | Inpatient (IN) | payer OTHER, BC ==
[~2017-12-07] VITALS: Ht 167.6 cm; Wt 78.1 kg
[~2017-12-07 21:49] MED LIST changes: +ASPIR 8181 M1 PO
[2017-12-07 22:45] LABS: CHLORIDE 99 mEq/L (99-109); POTASSIUM 3.8 mEq/L (3.7-5.4); SODIUM 137 mEq/L (136-147)
[2017-12-07 22:46] LABS: GLUCOSE 137 mg/dL (70-99)
[2017-12-07 22:47] LABS: HEMATOCRIT 29.6 % (36.0-46.0); HEMOGLOBIN 8.5 G/DL (11.9-15.5); MCH 20.8 PG (29.0-34.0); MCHC 28.7 G/DL (30.0-36.0); MCV 72.5 FL (83-99); NRBC (%) 0.5 /100 WBC (0-0); PLATELET COUNT 127 K/uL (156-360); RBC DIS.WIDTH-CV 19.3 % (11.8-14.6); RBC DIS.WIDTH-SD 49.4 % (39-53); RED BLOOD COUNT 4.08 M/uL (3.80-5.20); WHITE BLOOD COUNT 8.8 K/uL (4.1-10.2)
[2017-12-07 22:49] LABS: INTER. NORMALIZED RATIO 1.3
[2017-12-07 22:50] LABS: CREATININE 1.1 mg/dL (0.6-1.3); GFR ESTIMATE (CALCULATED) 52 mL/min/
[2017-12-07 22:51] LABS: CARBON DIOXIDE (BICARBONATE) 31.2 MEQ/L (20-31)
[2017-12-07 22:51] LABS: PTT 31.3 SEC (25-37); UREA NITROGEN (BUN) 13 mg/dL (9-23)
[2017-12-07 22:58] LABS: TROP-I INTERPRETATION NEGATIVE; TROPONIN-I 0.02 ng/mL (0.0-0.30)
[2017-12-07] MEDS ORDERED: ALLOPURINOL100 MG PO (23:30)
[2017-12-07] MEDS ORDERED: BUSPAR15 MG PO (23:30)
[2017-12-08 02:14] VITALS: BP 180/84
[2017-12-08 06:09] LABS: APPEARANCE CLEAR ((CLEAR)); BILIRUBIN NEGATIVE; BLOOD NEGATIVE; COLOR STRAW ((YELLOW)); GLUCOSE (STRIP) NEGATIVE; KETONES NEGATIVE; LEUKOCYTES NEGATIVE; NITRITE NEGATIVE; PROTEIN (STRIP) 30; SPECIFIC GRAVITY 1.011 (1.000-1.030); UCUL ADDED? NO; UROBILINOGEN 0.2 MG/DL (0.2-1.0)
[2017-12-08 06:43] LABS: TROP-I INTERPRETATION NEGATIVE; TROPONIN-I < 0.01 ng/mL (0.0-0.30)
[2017-12-08 07:03] VITALS: BP 176/81
[2017-12-08 11:12] VITALS: BP 151/67
[2017-12-08 12:22] LABS: TROP-I INTERPRETATION NEGATIVE; TROPONIN-I < 0.01 ng/mL (0.0-0.30)
[2017-12-08 14:58] VITALS: BP 149/70
[2017-12-08 19:31] VITALS: BP 139/63
[2017-12-09] VITALS (10 sets, daily range): BP systolic 139–166; BP diastolic 63–89
[2017-12-09 06:01] LABS: CHLORIDE 95 MEQ/L (99-109); CREATININE 1.1 MG/DL (0.6-1.3); GFR ESTIMATE (CALCULATED) 52 mL/min/; POTASSIUM 3.7 MEQ/L (3.7-5.4); SODIUM 139 MEQ/L (136-147); UREA NITROGEN (BUN) 19 mg/dL (9-23)
[2017-12-09 06:04] LABS: GLUCOSE 252 mg/dL (70-99)
[2017-12-09 06:22] LABS: HEMATOCRIT 25.4 % (36.0-46.0); HEMOGLOBIN 7.3 G/DL (11.9-15.5); MCH 20.7 PG (29.0-34.0); MCHC 28.7 G/DL (30.0-36.0); NRBC (%) 1.4 /100 WBC (0-0); RBC DIS.WIDTH-CV 19.4 % (11.8-14.6); RED BLOOD COUNT 3.53 M/uL (3.80-5.20); WHITE BLOOD COUNT 2.9 K/uL (4.1-10.2)
[2017-12-09 07:27] LABS: PLAT.SUFFICIENCY DECREASED; PLATELET COUNT 100 K/uL (156-360)
[2017-12-09 10:58] LABS: FERRITIN 36 NG/ML (10-291)
[2017-12-09 10:59] LABS: TRANSFERRIN (TIBC) 309.5 mg/dL (215-380)
[2017-12-09 11:00] LABS: IRON < 10 MCG/DL (35-150); TRANSFERRIN SATUR. 3 % (20-55)
[2017-12-09 17:52] LABS: IMM.RETIC FRACTION 25.3 % (3-19); RETIC HGB EQUIVALENT 22.1 (28-36); RETICULOCYTE COUNT 2.8 % (0.5-1.8)
[2017-12-09 23:55] LABS: HEMATOCRIT 30.9 % (36.0-46.0); HEMOGLOBIN 9.2 G/DL (11.9-15.5); MCV 73.2 FL (83-99)
[2017-12-10 00:26] VITALS: BP 149/80
[2017-12-10 04:34] VITALS: BP 161/78
[2017-12-10 06:09] LABS: BASOPHIL (%) 0 % (0-1); EOSINOPHIL (%) 0 % (0-5); HEMATOCRIT 32.2 % (36.0-46.0); HEMOGLOBIN 9.6 G/DL (11.9-15.5); IMMATURE GRANULOCYTE (%) 0.2 % (0.0-0.7); LYMPHOCYTE (%) 6.9 % (15-42); LYMPHOCYTE COUNT 0.4 K/uL (1.0-2.8); MCH 21.5 PG (29.0-34.0); MCHC 29.8 G/DL (30.0-36.0); MCV 72.2 FL (83-99); MONOCYTE COUNT 0.2 K/uL (0-0.8); NEUTROPHIL (%) 88.9 % (45-76); NEUTROPHIL COUNT 4.6 K/uL (1.8-6.4); PLATELET COUNT 105 K/uL (156-360); RBC DIS.WIDTH-CV 19.7 % (11.8-14.6); RBC DIS.WIDTH-SD 50.2 % (39-53); RED BLOOD COUNT 4.46 M/uL (3.80-5.20); WHITE BLOOD COUNT 5.2 K/uL (4.1-10.2)
[2017-12-10 06:28] LABS: CHLORIDE 91 MEQ/L (99-109); CREATININE 1.2 MG/DL (0.6-1.3); GFR ESTIMATE (CALCULATED) 47 mL/min/; GLUCOSE 170 mg/dL (70-99); LACTATE DEHYDROGENASE 197 IU/L (20-246); POTASSIUM 3.2 MEQ/L (3.7-5.4); SODIUM 137 MEQ/L (136-147); UREA NITROGEN (BUN) 24 mg/dL (9-23)
[2017-12-10 06:30] LABS: A/G RATIO 0.9 (1.1-1.8); ALBUMIN 3.6 G/DL (3.2-4.8); ALBUMIN 3.6 G/DL (3.4-5.0); ALKALINE PHOSPHATASE 96 IU/L (3-129); ALT (GPT) 7 IU/L (3-49); AST (GOT) 12 IU/L (2-34); CHLORIDE 91 MEQ/L (99-109); CREATININE 1.2 MG/DL (0.6-1.3); GFR ESTIMATE (CALCULATED) 47 mL/min/; GLOBULINS 3.8 G/DL (2.3-3.5); GLUCOSE 167 mg/dL (70-99); IMMUNOGLOBULIN G 1148 MG/DL (650-1600); IMMUNOGLOBULIN M 101 MG/DL (50-300); POTASSIUM 3.2 MEQ/L (3.7-5.4); SODIUM 137 MEQ/L (136-147); TOTAL BILIRUBIN 0.7 MG/DL (0.0-1.0); TOTAL PROTEIN 7.4 G/DL (6.4-8.2); TOTAL PROTEIN 7.4 G/DL (6.4-8.3); UREA NITROGEN (BUN) 23 mg/dL (9-23)
[2017-12-10 07:23] VITALS: BP 171/77
[2017-12-10 07:46] LABS: THYROTROPIN (TSH) 0.76 MIU/L (0.4-5.5)
[2017-12-10 07:56] LABS: FOLIC ACID (FOLATE) 11.7 NG/ML (5.0-22.0)
[2017-12-10 11:08] LABS: HIV-1/2 AB/AG COMBO Nonreactive
[2017-12-10 11:34] VITALS: BP 169/75
[2017-12-10 15:52] VITALS: BP 155/71
[2017-12-11 00:31] VITALS: BP 169/78
[2017-12-11 06:36] LABS: CHLORIDE 91 MEQ/L (99-109); CREATININE 1.2 MG/DL (0.6-1.3); GFR ESTIMATE (CALCULATED) 47 mL/min/; GLUCOSE 126 mg/dL (70-99); POTASSIUM 3.5 MEQ/L (3.7-5.4); SODIUM 140 MEQ/L (136-147); UREA NITROGEN (BUN) 26 mg/dL (9-23)
[2017-12-11 07:04] VITALS: BP 166/72
[2017-12-11 08:32] LABS: ALBUMIN 3.48 G/DL (3.6-4.9); ALPHA-2 GLOBULIN 1.08 G/DL (0.45-0.85); BETA-GLOBULIN 1.19 G/DL (0.65-1.15); GAMMA-GLOBULIN 1.25 G/DL (0.60-1.35)
[2017-12-11] MEDS ORDERED: LASIX40 MG PO (09:10)
[2017-12-11] MEDS ORDERED: PREDNISONE10 MG PO (09:10)
[2017-12-11] MEDS ORDERED: LISINOPRIL20 MG PO (09:10)
[2017-12-11] MEDS ORDERED: NICOTINE PATCH1 EAC2 TD (09:10)
[2017-12-11] MEDS ORDERED: CEFDINIR300 MG PO (09:10)
[2017-12-11 16:59] LABS: HAPTOGLOBIN+ 316 mg/dL (43-212)
== END 2017-12-11 14:39 | disposition home or self-care (01) | DRG 190 ==
LOC: EME 21:49 → 5SOUTH 12-08 00:40 → EDOF 12-08 00:40 → ENRESERV 12-08 00:46 → 5SOUTH 12-08 02:00
PROVIDERS: Emergency Medicine; Hospitalist; Internal Medicine; Physician Assistant; Student in an Organized Health Care Education/Training Program
PROC: 30233N1 Transfusion of Nonautologous Red Blood Cells into Peripheral Vein, Percutaneous Approach (ICD-10-PCS; principal; 2017-12-09)
DX: J44.1 Chronic obstructive pulmonary disease with (acute) exacerbation (principal); J44.0 Chronic obstructive pulmonary disease with (acute) lower respiratory infection; J20.9 Acute bronchitis, unspecified; I11.0 Hypertensive heart disease with heart failure; I50.33 Acute on chronic diastolic (congestive) heart failure; J96.01 Acute respiratory failure with hypoxia; F41.9 Anxiety disorder, unspecified; F17.210 Nicotine dependence, cigarettes, uncomplicated; E11.51 Type 2 diabetes mellitus with diabetic peripheral angiopathy without gangrene; I25.10 Atherosclerotic heart disease of native coronary artery without angina pectoris; E78.5 Hyperlipidemia, unspecified; I27.20 Pulmonary hypertension, unspecified; K21.9 Gastro-esophageal reflux disease without esophagitis; D61.818 Other pancytopenia; D50.9 Iron deficiency anemia, unspecified; K74.60 Unspecified cirrhosis of liver; K76.6 Portal hypertension; F32.9 Major depressive disorder, single episode, unspecified; Z95.1 Presence of aortocoronary bypass graft; I25.2 Old myocardial infarction; Z79.82 Long term (current) use of aspirin
CPT/HCPCS: 71046; 71275; 80048; 80053; 81003; 82272; 82525 90; 82607; 82728; 82746; 82784; 82803; 82948; 83010 90; 83090 90; 83540; 83605; 83615; 83880; 83921 90; 84165; 84443; 84466; 84484; 84630 90; 85014; 85018; 85025; 85027; 85046; 85379; 85610; 85730; 86334; 86850; 86900; 86901; 86920; 87040; 87389; 93005; 93306; 94640; 94640 76; 94760; 94799; 99202; 99281; 99285; J0456; J0696; J1650; J1756; J1815; J1940; J2920; J2930; J7050; J7512; P9016